=== PATIENT | male | born 1975 | race African-American/Black ===

== ENCOUNTER 2018-08-06 18:25 | Emergency (ER) | payer BC ==
[~2018-08-06] VITALS: Ht 182.9 cm; Wt 70.5 kg
[~2018-08-06 18:25] MED LIST: HYDROCODON-ACE1 EAC7 PO; IPRAT-ALBUT 0.5-3 ML UPD; OMNICEF300 MG PO; PREDNISONE20 MG PO; PROTONIX40 MG PO; ZITHROMAX250 MG PO
[2018-08-06 18:29] VITALS: Ht 182.9 cm; Wt 70.5 kg
[2018-08-06 19:35] LABS: BASOPHILS 0.2 % (0-2); EOSINOPHILS 3.7 % (0-7); HEMATOCRIT 44.9 % (42.0-54.0); HEMOGLOBIN 15.8 g/dL (13.5-17.5); IMMATURE GRANULOCYTES 0.3 % (0-5); LYMPHOCYTES 34.1 % (15-50); MCH 29.8 pg (26.0-34.0); MCHC 35.2 g/dL (31.0-37.0); MCV 84.7 fL (80.0-100.0); MEAN PLATELET VOLUME 9.8 fL (7.4-10.4); MONOCYTES 8.7 % (2-11); PLATELET COUNT 248 10x3/uL (130-400); RDW 14.6 % (11.5-14.5); WBC 8.9 10x3/uL (4.8-10.8)
[2018-08-06 20:00] LABS: ALBUMIN 3.9 g/dL (3.4-5.0); ANION GAP 16.2 mmol/L (8-16); BILIRUBIN - TOTAL 0.35 mg/dL (0.2-1.3); CARBON DIOXIDE 24.7 mmol/L (21.0-32.0); CREATININE - SERUM 1.2 mg/dL (0.6-1.3); POTASSIUM - SERUM 3.9 mmol/L (3.5-5.1); PROTEIN - SERUM 7.4 g/dL (6.4-8.2)
[2018-08-06 20:09] LABS: THYROID STIMULATING HORMONE 3.69 uIU/mL (0.36-3.74)
[2018-08-06] MEDS ORDERED: TORADOL10 MG PO (21:06)
[2018-08-06] MEDS ORDERED: NEURONTIN 300300 MG PO (21:06)
[2018-08-06 21:32] VITALS: BP 129/78
== END 2018-08-06 21:32 | disposition home or self-care (01) ==
LOC: D.ER 18:25
PROVIDERS: Family Medicine
DX: R20.2 Paresthesia of skin (principal)

== ENCOUNTER 2019-01-03 19:10 | Emergency (ER) | payer BC ==
[~2019-01-03] VITALS: Ht 182.9 cm; Wt 68.2 kg
[~2019-01-03 19:10] MED LIST changes: +NEURONTIN 300300 MG PO; +TORADOL10 MG PO
[2019-01-03 19:11] VITALS: Ht 182.9 cm; Wt 68.2 kg
[2019-01-03 20:33] LABS: BASOPHILS 0.2 % (0-2); EOSINOPHILS 1.7 % (0-7); HEMATOCRIT 43.6 % (42.0-54.0); HEMOGLOBIN 15.3 g/dL (13.5-17.5); IMMATURE GRANULOCYTES 0.3 % (0-5); LYMPHOCYTES 25.1 % (15-50); MCH 29.5 pg (26.0-34.0); MCHC 35.1 g/dL (31.0-37.0); MEAN PLATELET VOLUME 9.9 fL (7.4-10.4); MONOCYTES 8.3 % (2-11); NEUTROPHILS 64.4 % (40-80); PLATELET COUNT 207 10x3/uL (130-400); RBC 5.19 10x6/uL (4.20-6.10); RDW 14.5 % (11.5-14.5); WBC 11.2 10x3/uL (4.8-10.8)
[2019-01-03 20:52] LABS: ALBUMIN 4.6 g/dL (3.4-5.0); ALKALINE PHOSPHATASE 66 U/L (46-116); ALT (SGPT) 40 U/L (10-68); BILIRUBIN - TOTAL 0.67 mg/dL (0.2-1.3); CALC OSMOLALITY 279 mosm/kg (275-300); CALCIUM 9.2 mg/dL (8.5-10.1); CARBON DIOXIDE 27.4 mmol/L (21.0-32.0); CHLORIDE - SERUM 103 mmol/L (98-107); CREATININE - SERUM 1.2 mg/dL (0.6-1.3); GLUCOSE 81 mg/dL (74-106); PROTEIN - SERUM 7.8 g/dL (6.4-8.2); SODIUM 140 mmol/L (136-145); UREA NITROGEN 18 mg/dL (7-18); eGFR NON AFRICAN AMERICAN 70 mL/min (90-120)
[2019-01-03 20:57] LABS: TROPONIN-I < 0.017 ng/mL (0.000-0.060)
[2019-01-03 22:24] VITALS: BP 136/82
== END 2019-01-03 22:24 | disposition home or self-care (01) ==
LOC: D.ER 19:10
PROVIDERS: Family Medicine
DX: R55 Syncope and collapse (principal); R07.81 Pleurodynia; F17.210 Nicotine dependence, cigarettes, uncomplicated